=== PATIENT | female | born 1940 | race Caucasian/White ===

== ENCOUNTER 2022-10-01 12:25 | Inpatient (IN) ==
[2022-10-01] MEDS ORDERED: niCARdipine HCL INJ 2.5 MG/ML 10 ML AMP ONE (12:26)
[2022-10-01] MEDS ORDERED: HEPARIN (PORCINE) 1000 UNIT/ML 10 ML (CATH LAB USE ONLY) ONE (12:26)
[2022-10-01] MEDS ORDERED: fentaNYL citrate 100 MCG/2 ML VIAL ONE ×2 (12:26→14:09)
[2022-10-01] MEDS ORDERED: MIDAZOLAM HCL 1 MG/ML 2ML VIAL ONE (12:26)
[2022-10-01] MEDS ORDERED: NITROGLYCERIN SL 0.4 MG/TAB TAB ONE (12:32)
--- NOTE | 2022-10-01 12:35 | Emergency Department Note ---
Impression & Plan STEMI (ST elevation myocardial infarction), Chest pain ED Provider Note NAME: AI PERRY AGE: 82 SEX: F : 1940 ARRIVES VIA: Ambulance INFORMANT: Patient ED PROVIDER(S): Balaji Alaniz DO CHIEF COMPLAINT: chest pain HPI: Patient is an 82-year-old female who presents to the ER for midsternal chest pressure which started an hour prior to arrival. She received bad news a bout a family member being hospitalized and started having midsternal chest pressure going down both arms and up to the neck. She admits to shortness of breath with this. She has had 5 previous stents. Last catheterization was in 2014. Does have a history of hypertension and hyperlipidemia. She was brought in by EMS. She notes this does feel like her previous heart attacks with the exception on those she did not have any chest pressure but had the arm pain. She also had no jaw pain with those previous events. PAST MEDICAL HISTORY:See Below PAST SURGICAL HISTORY:See Below FAMILY HISTORY:See Below SOCIAL HISTORY:See Below HOME MEDICATIONS:See Below ALLERGIES:See Below VITALS:See Below PHYSICAL EXAMINATION: GENERAL: Sitting up in bed, alert, well appearing, well nourished, no distress, non-toxic EYE EXAM: normal conjunctiva. OROPHARYNX: mucous membranes are moist LUNGS: Clear to auscultation. Normal chest wall mechanics HEART: no murmurs, S1 normal and S2 normal ABDOMEN: abdomen soft, non-tender, normo-active bowel sounds, no masses, no rebound or guarding. UPPER EXTREMITIES: upper extremities are grossly normal. LOWER EXTREMITIES: No pitting edema. NEURO EXAM: Normal sensorium, cranial nerves II-XII grossly intact, normal speech, no gross weakness of arms, no gross weakness of legs. MEDICAL DECISION MAKING: Patient is an 82-year-old female who presents the ER for for her chest pressure midsternal going through to the back and bilateral arm and jaw pain. This felt similar to her previous CT with the exception she did not have chest pressure with those or neck pain B/L. I received medical command call in regards to this. She had progressive changes in her EKG concerning for STEMI prior to arrival. Heart alert was called 10-8 minutes prior to arrival. IVs were established blood work was obtained. Patient was given aspirin, nitro, and fentanyl prior to arrival. Here she was given nitro as Pt was . Cath team was present at bedside. Patient was taken to the [facility] prior to the result of blood work and obtaining chest x-ray as to not delay intervention. Labs show no significant leukocytosis or anemia. BMP with mild hypokalemia 3.2. LFTs bi lirubin was unremarkable. Troponin was only mildly elevated at 16. COVID was negative. Patient was taken emergently to the [facility] by Dr. Marcano. Triage Nursing notes reviewed. Limited review of prior medical records performed Vital Signs: reviewed and remarkable for no significant abnormalities Differential diagnosis: Cardiac ischemia, aortic dissection, pulmonary embolism, pneumothorax, pneumonia, pericarditis, myocarditis, esophageal rupture, GERD, cholecystitis, pancreatitis, musculoskeletal, as well as other pathologies. ER treatment provided: See below Diagnostics interpreted by me include EKG and cardiac monitoring as listed below: -Cardiac Monitoring: An order was placed for continuous cardiac monitoring. The monitor shows a rate of 83 with sinus rhythm. -ECG: Initial EKG by EMS showed A-fib without ST segment changes Repeat EKG A EMS at 1217 showed A-fib rate of 74 ST segment elevations in V2 and V3 PVC QTc 460 No old to compare to EKG #2 A-fib rate [address] segment elevations in V2 and V3 PVC QTc 457 -Laboratory studies:Interpreted by me as stated above in MDM and shown below. Imaging studies: Xrays: As interpreted by me:none CTs show: none Consultation(s): Dr. Marcano from interventional cardiology took the patient emergently to [facility] Discussed with Destini after patient taken to the [facility] to update them in regards to possible admission Procedures:none Critical Care: I have personally spent 31 minutes of critical care time in the direct management of this patient. This includes bedside care, interpretation of diagnostic studies, and testing, discussion with consultants, patient, and family members, and other required patient management activities. This 31 minutes is in excess of all separately billable procedures. Past Med/Surg History Medical History (Updated 10/01/22 @ 16:12 by Summer Archuleta MD) Atrial fibrillation CAD (coronary artery disease) HLD (hyperlipidemia) HTN (hypertension) Statin intolerance Surgical History (Updated 10/01/22 @ 15:46 by Allyson Saul PA-C) H/O tubal ligation Presence of Watchman left atrial appendage closure device 2014 at [facility] Stented coronary artery 2015 at [facility] Family History Other Heart disease Hypertension Social History Smoking Status: Never smoker Second Hand Exposure: No; Do You Dip or Chew Tobacco: No; Tobacco Cessation Education Requested by Patient: No Hx Alcohol Use: No Hx Substance Use: No Preferred Language: Occitan Communication Ability: Effective Machine Stone Polisher Required: No Beliefs That Will Affect Care: None Current Living Situation: Alone Other Information That Helps Us Care for You: No Feels Safe at Home: Yes Safety Concerns: Feels Safe At This Time Assistive Devices: None Allergies Allergies Allergy/AdvReac Type Severity Reaction Status Date / Time [id number] Reductase AdvReac Muscle Pain Verified 10/01/22 13:57 Inhibitor Home Meds Home Medications Medication Instructions Recorded Confirmed aspirin 81 mg capsule 81 mg PO DAILY 10/01/22 10/01/22 calcium carbonate 600 mg calcium 600 mg PO DAILY 10/01/22 10/01/22 (1,500 mg) tablet cholecalciferol (vitamin D3) 50 50 mcg PO DAILY 10/01/22 10/01/22 mcg (2,000 unit) capsule (Vitamin D3) diltiazem HCl 120 mg 120 mg PO DAILY 10/01/22 10/01/22 capsule,extended release 24 hr evolocumab 140 mg/mL subcutaneous 140 mg subcut Q14D 10/01/22 10/01/22 pen injector (Shena Alvarez) lisinopril 20 mg tablet 20 mg PO DAILY 10/01/22 10/01/22 magnesium oxide 400 mg PO DAILY 10/01/22 10/01/22 multivitamin 1 tab PO DAILY 10/01/22 10/01/22 pantoprazole 40 mg tablet,delayed 40 mg PO DAILY 10/01/22 10/01/22 release potassium chloride 20 mEq 20 meq PO DAILY 10/01/22 10/01/22 tablet,extended release(part/cryst) Results & Data (ED) Vital Signs Vital Signs - 24 hr 10/01/22 12:21 10/01/22 12:21 10/01/22 12:21 Temperature Temperature Source Pulse Rate 78 Pulse Rate [Apical] 78 Pulse Rhythm [Apical] Pulse Strength [Apical] Respiratory Rate 24 24 Respiratory Effort / Characteristics Non-Labored Spontaneous Non-Labored Respiratory Depth Respiratory Pattern Regular Blood Pressure 144/106 H Blood Pressure [Left Arm] 144/106 H Blood Pressure Mean 118 Blood Pressure Mean [Left Arm] 118 Blood Pressure Position [Left Arm] Pulse Oximetry 93 93 93 Oxygen Delivery Method Nasal Cannula Nasal Cannula Nasal Cannula Oxygen Flow Rate 2 2 Sepsis Recent Fever Within 48 Hours No Sepsis New/Unexplained Change in Mental Status N/A Sepsis Action Taken by Nursing No Action Required 10/01/22 12:21 10/01/22 12:45 10/01/22 13:35 Temperature 36.5 C Temperature Source Oral Pulse Rate 81 Pulse Rate [Apical] 76 Pulse Rhythm [Apical] Pulse Strength [Apical] Respiratory Rate 22 18 Respiratory Effort / Characteristics Non-Labored Respiratory Depth Normal Respiratory Pattern Blood Pressure 149/105 H Blood Pressure [Left Arm] 165/107 H Blood Pressure Mean Blood Pressure Mean [Left Arm] 126 Blood Pressure Position [Left Arm] Pulse Oximetry 93 94 94 Oxygen Delivery Method Nasal Cannula Nasal Cannula Room Air Oxygen Flow Rate 2 2 Sepsis Recent Fever Within 48 Hours Sepsis New/Unexplained Change in Mental Status Sepsis Action Taken by Nursing 10/01/22 13:45 10/01/22 14:00 10/01/22 14:15 Temperature Temperature Source Pulse Rate Pulse Rate [Apical] 84 86 91 H Pulse Rhythm [Apical] Pulse Strength [Apical] Respiratory Rate 18 18 18 Respiratory Effort / Characteristics Non-Labored Non-Labored Non-Labored Respiratory Depth Normal Normal Normal Respiratory Pattern Blood Pressure Blood Pressure [Left Arm] 161/118 H 165/119 H 144/115 H Blood Pressure Mean Blood Pressure Mean [Left Arm] 132 134 124 Blood Pressure Position [Left Arm] Pulse Oximetry 97 96 96 Oxygen Delivery Method Room Air Room Air Room Air Oxygen Flow Rate Sepsis Recent Fever Within 48 Hours Sepsis New/Unexplained Change in Mental Status Sepsis Action Taken by Nursing 10/01/22 14:20 10/01/22 14:20 10/01/22 14:50 Temperature 34.6 C L Temperature Source Oral Pulse Rate 84 Pulse Rate [Apical] 84 82 Pulse Rhythm [Apical] Regular Pulse Strength [Apical] Normal Respiratory Rate 18 18 Respiratory Effort / Characteristics Non-Labored Respiratory Depth Normal Normal Respiratory Pattern Blood Pressure Blood Pressure [Left Arm] 145/93 H 151/86 H Blood Pressure Mean Blood Pressure Mean [Left Arm] 110 107 Blood Pressure Position [Left Arm] Lying Pulse Oximetry 96 92 Oxygen Delivery Method Room Air Room Air Oxygen Flow Rate Sepsis Recent Fever Within 48 Hours Sepsis New/Unexplained Change in Mental Status Sepsis Action Taken by Nursing Laboratory Data 10/01/22 12:33 10/01/22 12:33 Lab Results 10/01/22 10/01/22 10/01/22 Range/Units 12:33 12:33 12:35 WBC 8.62 (4.8-10.8) K/ul RBC 3.93 L (4.20-5.40) M/uL Hgb 12.1 (12.0-16.0) g/dl POC Hgb (12.0-16.0) g/dl Hct 37.7 (37.0-47.0) % POC Hct (37-47) % MCV 95.9 (80.0-100.0) fL MCH 30.8 (25.0-34.0) pg MCHC 32.1 (32.0-36.0) g/dL RDW Std Deviation 56.0 H (36.4-46.3) fL RDW Coeff of Garcia 15.9 H (11.5-14.5) % Plt Count 232 (130-400) K/uL MPV 10.6 (9.4-12.4) fL Immature Gran % (Auto) 0.2 % Neut % (Auto) 64.2 % Lymph % (Auto) 23.9 % [place] % (Auto) 10.1 % Eos % (Auto) 1.3 % Baso % (Auto) 0.3 % Neut # (Auto) 5.53 (1.40-6.50) K/uL Lymph # (Auto) 2.06 (1.2-3.4) K/uL [place] # (Auto) 0.87 H (0.11-0.59) K/uL Eos # (Auto) 0.11 (0-0.50) K/uL Baso # (Auto) 0.03 (0-0.2) K/uL Immature Gran # (Auto) 0.02 (0.01-0.20) K/uL POC Sodium (135-144) mmol/L Sodium 143 (136-145) mmol/L POC Potassium (3.3-5.0) mmol/L Potassium 3.2 L (3.5-5.1) mmol/L POC Chloride (101-112) mmol/L Chloride 108 H (98-107) mmol/L Carbon Dioxide 27 (21-32) mmol/L POC Total CO2 (24-31) mmol/L Anion Gap 8 (3-11) POC Anion Gap (16-25) mmol/L POC BUN (7-18) mg/dl BUN 31 H (6-23) mg/dl Creatinine 1.20 (0.6-1.2) mg/dl POC Creatinine (0.6-1.3) mg/dl Est Cr Clr Drug Dosing 31.9 ml/min Est GFR ( Amer) 49.4 ml/min Est GFR (Non-Af Amer) 42.7 ml/min BUN/Creatinine Ratio 25.8 H (10-20) Glucose 108 H (70-99(Fasting)) mg/dl POC Glucose (other) (70-99) mg/dl Calcium 9.4 (8.5-10.1) mg/dl POC Ioniz Calcium Jasper (1.12-1.32) mmol/l Total Bilirubin 0.4 (0.2-1.0) mg/dl AST 17 (13-39) U/L ALT 10 (7-52) U/L Alkaline Phosphatase 59 (34-104) U/L Troponin I High Sens 16.3 H (0-14) pg/ml Total Protein 6.9 (6.0-8.3) gm/dl Albumin 4.1 (3.4-5.0) gm/dl Globulin 2.8 (2.5-4.0) gm/dl Albumin/Globulin Ratio 1.5 (0.9-2) Lipase 35 (11-82) U/L SARS-CoV-2, RNA, NAAT NEGATIVE (NEGATIVE) 10/01/22 Range/Units 12:43 WBC (4.8-10.8) K/ul RBC (4.20-5.40) M/uL Hgb (12.0-16.0) g/dl POC Hgb 12.9 (12.0-16.0) g/dl Hct (37.0-47.0) % POC Hct 38 (37-47) % MCV (80.0-100.0) fL MCH (25.0-34.0) pg MCHC (32.0-36.0) g/dL RDW Std Deviation (36.4-46.3) fL RDW Coeff of Garcia (11.5-14.5) % Plt Count (130-400) K/uL MPV (9.4-12.4) fL Immature Gran % (Auto) % Neut % (Auto) % Lymph % (Auto) % [place] % (Auto) % Eos % (Auto) % Baso % (Auto) % Neut # (Auto) (1.40-6.50) K/uL Lymph # (Auto) (1.2-3.4) K/uL [place] # (Auto) (0.11-0.59) K/uL Eos # (Auto) (0-0.50) K/uL Baso # (Auto) (0-0.2) K/uL Immature Gran # (Auto) (0.01-0.20) K/uL POC Sodium 143 (135-144) mmol/L Sodium (136-145) mmol/L POC Potassium 3.2 L (3.3-5.0) mmol/L Potassium (3.5-5.1) mmol/L POC Chloride 107 (101-112) mmol/L Chloride (98-107) mmol/L Carbon Dioxide (21-32) mmol/L POC Total CO2 25 (24-31) mmol/L Anion Gap (3-11) POC Anion Gap 16.0 (16-25) mmol/L POC BUN 28 H (7-18) mg/dl BUN (6-23) mg/dl Creatinine (0.6-1.2) mg/dl POC Creatinine 1.2 (0.6-1.3) mg/dl Est Cr Clr Drug Dosing ml/min Est GFR ( Amer) ml/min Est GFR (Non-Af Amer) ml/min BUN/Creatinine Ratio (10-20) Glucose (70-99(Fasting)) mg/dl POC Glucose (other) 107 H (70-99) mg/dl Calcium (8.5-10.1) mg/dl POC Ioniz Calcium Jasper 1.19 (1.12-1.32) mmol/l Total Bilirubin (0.2-1.0) mg/dl AST (13-39) U/L ALT (7-52) U/L Alkaline Phosphatase (34-104) U/L Troponin I High Sens (0-14) pg/ml Total Protein (6.0-8.3) gm/dl Albumin (3.4-5.0) gm/dl Globulin (2.5-4.0) gm/dl Albumin/Globulin Ratio (0.9-2) Lipase (11-82) U/L SARS-CoV-2, RNA, NAAT (NEGATIVE) Administered Medications Sodium Chloride (Nss 1000ml) 1,000 mls @ 100 mls/hr IV .Q10H [facility] Stop: 10/01/22 18:44 Last Admin: 10/01/22 15:31 Dose: 100 mls/hr Documented By: BASIM Esmolol HCl (Brevibloc) 2,500 mg in 250 mls @ 18.96 mls/hr IV .[id number] BARBARA; Protocol Stop: 10/31/22 15:44 Last Admin: 10/01/22 16:07 Dose: 50 mcg/kg/min, 19 mls/hr Documented By: HITESH Co-signed By: ANDRIA Ondansetron HCl (Ondansetron Inj 2 Mg/Ml 2 Ml Vial) 4 mg IV Q6H PRN PRN Reason: Nausea And Vomiting Stop: 10/31/22 13:34 Last Admin: 10/01/22 14:21 Dose: 4 mg Documented By: LINDA Discontinued Medications Fentanyl Citrate (Fentanyl Citrate 100 Mcg/2 Ml Vial) Confirm Administered Dose 100 mcg .ROUTE .STK-MED ONE Stop: 10/01/22 14:10 Last Increment: 10/01/22 14:20 Dose: 25 mcg Documented By: LINDA Hydralazine HCl (Hydralazine Hcl 20 Mg/Ml Vial) Confirm Administered Dose 20 mg .ROUTE .STK-MED ONE Stop: 10/01/22 13:52 Last Increment: 10/01/22 14:00 Dose: 10 mg Documented By: LINDA Ioversol (Optiray 320 500ml) 105 ml IV ONCE ONE Stop: 10/01/22 14:39 Last Admin: 10/01/22 14:38 Dose: 105 ml Documented By: LEXI Metoprolol Tartrate (Metoprolol Tartrate 1 Mg/Ml Vial) Confirm Administered Dose 5 mg IV .STK-MED ONE Stop: 10/01/22 14:19 Last Admin: 02/28/23 14:20 Dose: 5 mg Documented By: LINDA Nitroglycerin (Nitroglycerin Sl 0.4 Mg/Tab Tab) Confirm Administered Dose 0.4 mg .ROUTE .STK-MED ONE Stop: 10/01/22 12:33 Last Admin: 10/01/22 12:33 Dose: 0.4 mg Documented By: ALIDA Nitroglycerin (Nitroglycerin 2% Ointment 30gm Tube) Confirm Administered Dose 18 inch EXT .STK-MED ONE Stop: 10/01/22 13:53 Last Admin: 10/01/22 14:00 Dose: 1 inch Documented By: LINDA Imaging Data Radiologist's Impression: Chest CTA 10/01/22 14:18 CT ANGIOGRAPHY OF THE CHEST DISSECTION PROTOCOL CLINICAL HISTORY: chest pain, dilated aorta COMPARISON STUDY: No previous studies for comparison. TECHNIQUE: Before and following the IV administration of 105 mL of Optiray, helical axial images of the chest were obtained. Maximal intensity projections and sagittal and coronal reformats were viewed on an independent 3D workstation. IV contrast was administered without complication. Automated exposure control was utilized for the study. A dose lowering technique was utilized adhering to the principles of ALARA. CT DOSE: 613.59 mGy.cm FINDINGS: Note is made of an acute intramural hematoma of the thoracic aorta. This begins at the level of the aortic root and extends to the level of the mid descending thoracic aorta. No intimal flap is identified. The coronary arteries are suboptimally assessed on this non gated exam. There is associated dilatation of the ascending aorta which measures 5.5 x 5.4 cm at the level of the main pulmonary artery. Small hyperdense pericardial effusion represents small hemoperitoneum. Moderate cardiomegaly and coronary artery calcification is noted. There is a left atrial appendage device. No pulmonary emboli are identified. There is no pneumothorax or pleural effusion. A large hiatal hernia with partially intrathoracic stomach is present. There is no consolidation to suggest pneumonia. Linear and groundglass opacities within lungs favor atelectasis. Old T11 compression fracture is present. There is an old sternal fracture. Lesions within the visualized upper portions of the kidneys represent cysts. These measure up to 5.6 cm. IMPRESSION: 1. Acute type A intramural hematoma which extends from the aortic root to the mid descending thoracic aorta. Associated dilatation of the ascending aorta, measuring 5.5 x 5.4 cm and a small hemopericardium. No dissection flap. Urgent Cardiothoracic surgical consultation is recommended. Findings discussed with Dr. Marcano at time of dictation. 2. Moderate cardiomegaly and coronary calcification. 3. Large hiatal hernia. ACT 112: Negative or not required by law. Electronically signed by: Mat Yanez M.D. 10/01/2022 3:07 PM Discharge Plan Visit Data Chief Complaint: Heart Alert Stated Complaint: CHEST PAIN ED Provider: Balaji Alaniz Patient Disposition: Being Evaluated by Surgeon Discharge Instructions Interventions: ED Discharge Assessment Last Done: 10/01/22 12:45
[2022-10-01] MEDS ORDERED: TICAGRELOR 90 MG TAB ONE (12:45)
[2022-10-01] MEDS ORDERED: NITROGLYCERIN/D5W 100MCG/ML 20ML SYR ONE ×2 (12:45→12:52)
[2022-10-01 12:52] LABS: Basophils # (auto) 0.03 K/uL (0-0.2); Basophils % (auto) 0.3 %; Eosinophils # (auto) 0.11 K/uL (0-0.50); Eosinophils % (auto) 1.3 %; Hematocrit (blood only) 37.7 % (37.0-47.0); Hemoglobin 12.1 g/dl (12.0-16.0); Immature Granulocytes # (auto) 0.02 K/uL (0.01-0.20); Immature Granulocytes % (auto) 0.2 %; Lymphocytes # (auto) 2.06 K/uL (1.2-3.4); Lymphocytes % (auto) 23.9 %; Mean Corpuscular Hemoglobin 30.8 pg (25.0-34.0); Mean Corpuscular Hgb Conc 32.1 g/dL (32.0-36.0); Mean Corpuscular Volume 95.9 fL (80.0-100.0); Mean Platelet Volume 10.6 fL (9.4-12.4); Monocytes # (auto) 0.87 K/uL (0.11-0.59); Monocytes % (auto) 10.1 %; Neutrophils # (auto) 5.53 K/uL (1.40-6.50); Neutrophils % (auto) 64.2 %; Platelet Count 232 K/uL (130-400); RDW Coefficient of Variation 15.9 % (11.5-14.5); Red Blood Count 3.93 M/uL (4.20-5.40); White Blood Count 8.62 K/ul (4.8-10.8)
--- NOTE | 2022-10-01 12:52 | Cardiology Consultation ---
Date of Consultation October 01, 2022 Assessment & Plan (1) STEMI (ST elevation myocardial infarction): Presentation concerning for possible anterior STEMI and recommend proceeding with emergent cardiac catheterization and possible primary PCI. No apparent contraindications to procedure. Discussed risks, benefits, alternatives of procedure with patient and they are willing to proceed. Further recommendations pending findings of coronary angiography. History of Present Illness History of Present Illness 82-year-old woman here with acute chest pain and ECG concerning for acute AL. Patient seen emergently in the ED after heart alert activated en route. Past cardiac history remarkable for coronary artery disease with reported 5 stents previously placed at [facility], last per patient in 2014. Her head and neck surgeon is Dr. Rivas. Also with atrial fibrillation post Watchman. Also reports a history of a heart murmur. Chest pain began approximately 11 AM, approximately 80 minutes prior to arrival. Symptoms began while she was talking on the phone, stressful conversation regarding hospitalization of her older sister. Describes substernal pain with associated diaphoresis and numbness in her hands. Symptoms similar to what she had in the past with prior AL but more severe. En route initial ECG showed atrial fibrillation without dynamic ST changes. Subsequent ECG 6 min later with anterior ST elevations in V2-V3 and heart alert activated from field. Ongoing chest pain on arrival, EKG with borderline ST elevations in V2-V3. Given nitroglycerin, aspirin fentanyl in ED. Patient History Social History Smoking Status: Never smoker Preferred Language: Georgian Feels Safe at Home: Yes Review of Systems Review of Systems: All systems reviewed & are unremarkable except as noted in HPI & below Physical Exam Physical Exam: General: Uncomfortable, diaphoretic HEENT: Sclerae anicteric Lungs: Clear to auscultation anteriorly Cardiac: Irregular irregular, 3-6 systolic ejection murmur heard best at left upper sternal border Vascular: Diminished right radial pulse. 2+ left radial pulse Abdomen: Soft, nontender Extremities: Well perfused, no peripheral edema Neuro: Nonfocal Psych: Alert orient x3, normal affect and mood Results & Data ([facility]) Vital Signs (Past 12 Hours) Vital Signs Pulse Pulse Resp BP BP Pulse Ox O2 Del Method 10/01/22 12:21 93 Nasal Cannula 10/01/22 12:21 78 24 144/106 H 93 Nasal Cannula 10/01/22 12:21 93 Nasal Cannula 10/01/22 12:21 78 24 144/106 H 93 Nasal Cannula O2 Flow Rate 10/01/22 12:21 2 10/01/22 12:21 2 10/01/22 12:21 2 10/01/22 12:21 PG Care Time/CCT Total # of Minutes Spent Total Time Spent with Patient: Total time spent is greater than 50% in coordination of care (as documented) at patient's floor/unit and/or counseling patient: Coding Level of Care Code 10665 INT INP/OBS CARE 3/75MIN Diagnoses STEMI (ST elevation myocardial infarction) I21.3
[2022-10-01 12:57] LABS: iSTAT Creatinine 1.2 mg/dl (0.6-1.3); iSTAT Hemoglobin 12.9 g/dl (12.0-16.0); iSTAT Ionized Calcium 1.19 mmol/l (1.12-1.32); iSTAT Potassium 3.2 mmol/L (3.3-5.0)
[2022-10-01 13:11] LABS: Albumin Globulin Ratio 1.5 (0.9-2); Albumin Level 4.1 gm/dl (3.4-5.0); BUN Creatinine Ratio 25.8 (10-20); Bilirubin,Total 0.4 mg/dl (0.2-1.0); Calcium 9.4 mg/dl (8.5-10.1); Creatinine Clr Calc Pharmacy 31.9 ml/min; Est GFR (African American) 49.4 ml/min; Est GFR (Non-African American) 42.7 ml/min; Globulin 2.8 gm/dl (2.5-4.0); Potassium 3.2 mmol/L (3.5-5.1); Total Protein 6.9 gm/dl (6.0-8.3)
[2022-10-01 13:13] LABS: Troponin I High Sensitivity 16.3 pg/ml (0-14)
[2022-10-01] MEDS ORDERED: ACETAMINOPHEN 325 MG TAB PO PRN (13:35)
[2022-10-01] MEDS ORDERED: ONDANSETRON INJ 2 MG/ML 2 ML VIAL IV PRN (13:35)
[2022-10-01] MEDS ORDERED: SODIUM CHLORIDE 0.9% 1000ML 1,000 ML IV SCH (13:45)
--- NOTE | 2022-10-01 13:50 | Cardiac Catheterization ---
[facility] Data: [facility] Cardiac Status Clinical evaluation leading to the procedure CAD Presenation: STEMI Anginal Classification: CCS IV Diagnostic Physicians Name: Cisco Marcano MD Closure Device Recommendations: Medical Therapy and/or Counseling Cardiac Cath Procedure Full Procedure Date October 01, 2022 Pre-Procedure Diagnosis Pre-Procedure Diagnosis: STEMI AUC Score AUC Score: 9 Post-Procedure Diagnosis Post-Procedure Diagnosis: Moderate CAD, Normal LV Systolic Function and Normal Intracardiac Pressures Procedure(s) Performed Procedure(s) Performed: Coronary Angiography, Left Heart Cath, LV Angiography and Ultrasound Guided Vascular Access Plug Paster Cisco Marcano MD Gearcase Assembler(s) Bret Estimated Blood Loss Estimated Blood Loss: 10 Medication(s) Medication(s): Fentanyl, Heparin, Lidocaine 1%, Nicardipine, Nitroglycerin and Versed Medication(s): Ticagrelor Summary of Findings Indication: Suspected ACS. Acute chest pain with transient anterior ST elevations on ECG. Access: 6 Fr left radial artery under ultrasound guidance Catheters: EBU 3.5 guide, diagnostic JR4, pigtail catheter Findings: LM -medium caliber, long vessel with luminal regularities LAD -medium caliber, 30% ostial stenosis, proximal luminal irregularities, 50% mid segment stenosis after takeoff of large D1. Remainder of LAD without significant disease and extends to apex. Large D1 with widely patent proximal stent, at least 2 stents in the midsegment without significant restenosis and 20 to 30% stenosis just distal to the stents. NGUYEN-3 flow in distal diagonal Circumflex -medium caliber vessel, no significant disease Ramussmall vessel, 60% ostial stenosis, NGUYEN-3 flow RCA -dominant, anterior takeoff, large caliber, 20 to 30% mid segment disease. RPDA, posterior AV branch without significant disease. Small conus branch appears subtotally occluded. LVEDP -7 LV [id number]%, no apparent regional wall motion abnormalities, no significant AI Arterial Closure: TR band Summary: 1. Moderate nonobstructive coronary artery disease -30% ostial LAD, 50% mid LAD. Large D1 with widely patent proximal, mid stents. Hazy 30% stenosis just after prior stents. Small ramus 60% ostial Very small conus branch subtotally occluded, potentially acute 2. Normal intracardiac filling pressure 3. LVEF 60 to 65% without regional wall motion abnormalities Recommendations: Unclear initial etiology of patient's presenting chest pain. No high risk obstructive disease seen on coronary angiography. LV gram does not suggest Takotsubo's. Possible vasospasm, transient small vessel occlusion. We will admit to telemetry for further observation and evaluation of non-cardiac causes of pain. Trend troponin until peak, check echocardiogram Resume heparin infusion when TR band removed. Continued ASCVD risk factor modification Hemodynamics Rest Ao:: 162/112/135 Final Ao: 163/94/114 LV: 161/7 Recommendations Recommendations: Medical Therapy and/or Counseling Specimens Specimens: None Radiation Exposure (mGy) 599 Contrast (mls) 80 Anesthesia Moderate [id number] Procedural Complication(s) None Disposition PCU I attest to the content of the Intraoperative Record and any orders documented therein. Any exceptions are noted below. [facility] Card Cath Procedure Codes Cardiac Catheterization Procedure 1: Cardiovascular Cath Procedures: 22333 Coronaries and LHC (+/-LV) Therapeutic Services & Ancillary Procedure 1: Cardiovascular Tx and Anc Procedures: 65002 Ultrasonic Guidance Vascular Access Moderate Sedation Procedure 1: Sedation/Anesthesia: 90293 Mod Sedation by the same physician;Init15 Min Child Age 5 & Up PG Care Time/CCT Total # of Minutes Spent Total Time Spent with Patient: Total time spent is greater than 50% in coordination of care (as documented) at patient's floor/unit and/or counseling patient:
[2022-10-01] MEDS ORDERED: hydrALAZINE HCL 20 MG/ML VIAL ONE (13:51)
[2022-10-01] MEDS ORDERED: NITROGLYCERIN 2% OINTMENT 30GM TUBE EXT ONE (13:52)
[2022-10-01] MEDS ORDERED: Patient's ALLERGY Info needs ENTERED SCH (14:00)
--- NOTE | 2022-10-01 14:07 | History & Physical Report ---
Date of Service October 01, 2022 Assessment & Plan (1) Intramural aortic hematoma: (2) STEMI (ST elevation myocardial infarction): Plan: This is an 82yo F with a PMH of CAD with 5 stents placed at [facility], atrial fibrillation status post Watchman device and other medical problems listed below who presents with acute chest pain with abnormal EKG changes and heart alert was called prior to arrival. Symptoms began this morning around 11 AM and was brought to ED by EMS as a heart alert Initial ECG by EMS in route demonstrated atrial fibrillation and subsequent ECG showed subtle ST elevation V2-V3 Given nitro, aspirin and fentanyl in ED Cardiac cath revealed moderate nonobstructive coronary artery disease and preserved LVEF 60 to 65% without regional wall motion abnormalities Initial etiology of chest pain unclear but echocardiogram revealed enlarged aorta so CTA chest obtained to rule out dissection CTA chest shows acute type A intramural hematoma which extends from the aortic root to the mid descending thoracic aorta. Associated dilatation of the ascending aorta, measuring 5.5 x 5.4 cm and a small hemopericardium. No dissection flap. Urgent Cardiothoracic surgical consultation is recommended Dr. Marcano discussed with [facility] cardiothoracic surgery and Dr. Pisano accepting Arranging for transfer to ICU, to be flown Patient to ICU on Esmolol drip. Discussed with Dr. Villanueva (3) Atrial fibrillation: Plan: S/p Watchman closure in 2014 at [facility]. Continue diltiazem (4) HTN (hypertension): Plan: Holding lisinopril for now, Cr 1.2 and received IV contrast. Repeat BMP tomorrow. On Esmolol drip (5) HLD (hyperlipidemia): (6) Statin intolerance: Plan: Repatha SQ Q2 weeks, due today Code status: FULL PCP: Xavi Morris) Dispo: Transferring to [facility], ICU until then Patient seen in collaboration with Dr. Archuleta. Please see addendum. A total of 80 minutes critical care time was spent with greater than 50% of that time face to face with the patient, personally reviewing all current laboratories, imaging studies, past medication reconciliation, outpatient chart review, and discussion with specialists to collaborate care for the patient with attending and utilization of translation services. Please see attending documentation for corrections and/or additions. (7) Ascending aortic dissection: (8) Pericardial effusion: History of Present Illness Chief Complaint: chest pain Primary Care Provider: NO PCP This is an 82yo F with a PMH of CAD with 5 stents placed at [facility], atrial fibrillation status post Watchman device and other medical problems listed below who presents with acute chest pain with abnormal EKG changes and heart alert was called prior to arrival. Symptoms began this morning around 11 AM following stressful conversation about hospitalization of older sister. Described central substernal chest pain with radiation to neck as well as associated diaphoresis similar to what she had with previous [place]. Initial ECG by EMS in route demonstrated atrial fibrillation and subsequent ECG showed subtle ST elevation V2-V3. Patient seen emergently in ED as a heart alert and was given nitro, aspirin and fentanyl in ED. Cardiac cath revealed moderate nonobstructive coronary artery disease and preserved LVEF 60 to 65% without regional wall motion abnormalities. Per Dr. Marcano, unclear etiology of patient's presenting chest pain. Consideration for coronary spasm. LV gram does not suggest Takotsubo's. Echocardiogram revealed enlarged aorta so CTA chest obtained to rule out dissection. CTA chest shows acute type A intramural hematoma which extends from the aortic root to the mid descending thoracic aorta. Associated dilatation of the ascending aorta, measuring 5.5 x 5.4 cm and a small hemopericardium. No dissection flap. Urgent Cardiothoracic surgical consultation is recommended. U pdated by Dr. Marcano, who is arranging for transfer to tertiary care facility and patient accepted by Dr. Pisano at [facility]. Patient will be transferred to ICU for management until then. Discussed with Dr. Villanueva. In ICU, patient still with 2/10 substernal discomfort with associated nausea and fatigue but no vomiting. Denies fever, chills, lightheadedness, SOB, abdominal pain, dysuria, diarrhea or constipation. Daughter, RN, at bedside. 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 Allergies Allergy/AdvReac Type Severity Reaction Status Date / Time [id number] Reductase AdvReac Muscle Pain Verified 10/01/22 13:57 Inhibitor Home Medications Medication Instructions Recorded Confirmed Type aspirin 81 mg capsule 81 mg PO DAILY 10/01/22 10/01/22 History calcium carbonate 600 mg calcium 600 mg PO DAILY 10/01/22 10/01/22 History (1,500 mg) tablet cholecalciferol (vitamin D3) 50 50 mcg PO DAILY 10/01/22 10/01/22 History mcg (2,000 unit) capsule (Vitamin D3) diltiazem HCl 120 mg 120 mg PO DAILY 10/01/22 10/01/22 History capsule,extended release 24 hr evolocumab 140 mg/mL subcutaneous 140 mg subcut Q14D 10/01/22 10/01/22 History pen injector (blaisegilles LynnJamisonliang) lisinopril 20 mg tablet 20 mg PO DAILY 10/01/22 10/01/22 History magnesium oxide 400 mg PO DAILY 10/01/22 10/01/22 History multivitamin 1 tab PO DAILY 10/01/22 10/01/22 History pantoprazole 40 mg tablet,delayed 40 mg PO DAILY 10/01/22 10/01/22 History release potassium chloride 20 mEq 20 meq PO DAILY 10/01/22 10/01/22 History tablet,extended release(part/cryst) Past Med/Surg History Medical History (Updated 10/01/22 @ 16:12 by Summer Archuleta MD) Atrial fibrillation CAD (coronary artery disease) HLD (hyperlipidemia) HTN (hypertension) Statin intolerance Surgical History (Updated 10/01/22 @ 15:46 by Allyson Saul PA-C) H/O tubal ligation Presence of Watchman left atrial appendage closure device 2015 at [facility] Stented coronary artery 2015 at [facility] Family History Other Heart disease Hypertension Social History Smoking Status: Never smoker Second Hand Exposure: No; Do You Dip or Chew Tobacco: No; Tobacco Cessation Education Requested by Patient: No Hx Alcohol Use: No Hx Substance Use: No Preferred Language: French Communication Ability: Effective Barrel Finisher Required: No Beliefs That Will Affect Care: None Current Living Situation: Alone Other Information That Helps Us Care for You: No Feels Safe at Home: Yes Safety Concerns: Feels Safe At This Time Assistive Devices: None Review of Systems Review of Systems: At least ten systems reviewed and negative except as noted in the HPI. Physical Exam Physical Exam: Please see Dr. Archuleta's addendum for physical exam. Results & Data Results & Data ([facility]) Vital Signs (Past 12 Hours) Vital Signs Temp Pulse Pulse Resp BP BP Pulse Ox 10/01/22 13:35 76 18 165/107 H 94 10/01/22 12:45 36.5 C 81 22 149/105 H 94 10/01/22 12:21 93 10/01/22 12:21 78 24 144/106 H 93 10/01/22 12:21 93 10/01/22 12:21 78 24 144/106 H 93 O2 Del Method O2 Flow Rate 10/01/22 13:35 Room Air 10/01/22 12:45 Nasal Cannula 2 10/01/22 12:21 Nasal Cannula 2 10/01/22 12:21 Nasal Cannula 2 10/01/22 12:21 Nasal Cannula 2 10/01/22 12:21 Nasal Cannula Laboratory Results Short CBC 10/01/22 Range/Units 12:33 WBC 8.62 (4.8-10.8) K/ul Hgb 12.1 (12.0-16.0) g/dl Hct 37.7 (37.0-47.0) % Plt Count 232 (130-400) K/uL BMP 10/01/22 12:33 Sodium 143 Potassium 3.2 L Chloride 108 H Carbon Dioxide 27 BUN 31 H Creatinine 1.20 Glucose 108 H Calcium 9.4 Liver Function 10/01/22 Range/Units 12:33 Total Bilirubin 0.4 (0.2-1.0) mg/dl AST 17 (13-39) U/L ALT 10 (7-52) U/L Alkaline Phosphatase 59 (34-104) U/L Albumin 4.1 (3.4-5.0) gm/dl Diagnostic Findings Chest CTA 10/01/22 14:18 CT ANGIOGRAPHY OF THE CHEST DISSECTION PROTOCOL CLINICAL HISTORY: chest pain, dilated aorta COMPARISON STUDY: No previous studies for comparison. TECHNIQUE: Before and following the IV administration of 105 mL of Optiray, helical axial images of the chest were obtained. Maximal intensity projections and sagittal and coronal reformats were viewed on an independent 3D workstation. IV contrast was administered without complication. Automated exposure control was utilized for the study. A dose lowering technique was utilized adhering to the principles of ALARA. CT DOSE: 613.59 mGy.cm FINDINGS: Note is made of an acute intramural hematoma of the thoracic aorta. This begins at the level of the aortic root and extends to the level of the mid descending thoracic aorta. No intimal flap is identified. The coronary arteries are suboptimally assessed on this non gated exam. There is associated dilatation of the ascending aorta which measures 5.5 x 5.4 cm at the level of the main pulmonary artery. Small hyperdense pericardial effusion represents small hemoperitoneum. Moderate cardiomegaly and coronary artery calcification is noted. There is a left atrial appendage device. No pulmonary emboli are identified. There is no pneumothorax or pleural effusion. A large hiatal hernia with partially intrathoracic stomach is present. There is no consolidation to suggest pneumonia. Linear and groundglass opacities within lungs favor atelectasis. Old T11 compression fracture is present. There is an old sternal fracture. Lesions within the visualized upper portions of the kidneys represent cysts. These measure up to 5.6 cm. IMPRESSION: 1. Acute type A intramural hematoma which extends from the aortic root to the mid descending thoracic aorta. Associated dilatation of the ascending aorta, measuring 5.5 x 5.4 cm and a small hemopericardium. No dissection flap. Urgent Cardiothoracic surgical consultation is recommended. Findings discussed with Dr. Marcano at time of dictation. 2. Moderate cardiomegaly and coronary calcification. 3. Large hiatal hernia. ACT 112: Negative or not required by law. Electronically signed by: Mat Yanez M.D. 10/01/2022 3:07 PM ECG Additional Comments: EKG independently reviewed-Atrial fibrillation, ST elevation in V2-V3, T wave abnormality Code Status & VTE Plan VTE Prophylaxis Plan VTE Prophylaxis will be ordered: Yes Supervising Physician Co-Signing Physician Notes Patient was seen and examined with CALVIN. I was directly involved in patient care and CALVIN supervision. Start esmolol drip. Goal HR 50-60, SBP 100-120. Will hold lisinopril with her Cr of 1.2 (unk baseline) and contrast exposure today. Physical Exam: Gen- non toxic, no acute distress, pleasant and comfortable HEENT- mucous membrane moist, normocephalic, atraumatic CV- regular rate and rhythm, no murmurs/rubs/gallops Pulm- breathing comfortably on room air, no wheezing/rhonchi/rales Abd- soft, non tender, non distended Extr- no edema, no cyanosis or clubbing Skin- no rash, no redness, no ulcer noted on exposed skin Neuro- awake, alert, spontaneously moving extremities
[2022-10-01] MEDS ORDERED: METOPROLOL TARTRATE 1 MG/ML VIAL IV ONE (14:18)
[2022-10-01] MEDS ORDERED: OPTIRAY 320 500ml IV ONE (14:38)
--- NOTE | 2022-10-01 14:43 | Electrocardiogram Report ---
Test Reason : Blood Pressure : / mmHG Vent. Rate : 081 BPM Atrial Rate : 312 BPM P-R Int : 000 ms QRS Dur : 092 ms QT Int : 394 ms P-R-T Axes : 000 -07 111 degrees QTc Int : 457 ms Atrial fibrillation with premature ventricular or aberrantly conducted complexes Cannot rule out Inferior infarct , age undetermined Anteroseptal infarct , age undetermined Anterior injury pattern T wave abnormality, consider lateral ischemia Abnormal ECG No previous ECGs available Confirmed by Devante Goel ([id number]) on 10/01/2022 2:43:19 PM Referred By: Confirmed By:Devante Goel
--- NOTE | 2022-10-01 15:01 | XCELERA ---
[id number]
--- NOTE | 2022-10-01 15:09 | CT Scan Report ---
CT ANGIOGRAPHY OF THE CHEST DISSECTION PROTOCOL CLINICAL HISTORY: chest pain, dilated aorta COMPARISON STUDY: No previous studies for comparison. TECHNIQUE: Before and following the IV administration of 105 mL of Optiray, helical axial images of t he chest were obtained. Maximal intensity projections and sagittal and coronal reformats were viewed on an independent 3D workstation. IV contrast was administered without complication. Automated exp osure control was utilized for the study. A dose lowering technique was utilized adhering to the ab Shin. CT DOSE: 613.59 mGy.cm FINDINGS: Note is made of an acute intramural hematoma of the thoracic aorta. This begins at the lev el of the aortic root and extends to the level of the mid descending thoracic aorta. No intimal flap is identified. The coronary arteries are suboptimally assessed on this non gated exam. There is assoc iated dilatation of the ascending aorta which measures 5.5 x 5.4 cm at the level of the main pulmonar y artery. Small hyperdense pericardial effusion represents small hemoperitoneum. Moderate cardiomegal y and coronary artery calcification is noted. There is a left atrial appendage device. No pulmonary e mboli are identified. There is no pneumothorax or pleural effusion. A large hiatal hernia with partia lly intrathoracic stomach is present. There is no consolidation to suggest pneumonia. Linear and grou ndglass opacities within lungs favor atelectasis. Old T11 compression fracture is present. There is a n old sternal fracture. Lesions within the visualized upper portions of the kidneys represent cysts. These measure up to 5.6 cm. IMPRESSION: 1. Acute type A intramural hematoma which extends from the aortic root to the mid descending thoracic aorta. Associated dilatation of the ascending aorta, measuring 5.5 x 5.4 cm and a small hemopericard ium. No dissection flap. Urgent Cardiothoracic surgical consultation is recommended. Findings discuss ed with Dr. Marcano at time of dictation. 2. Moderate cardiomegaly and coronary calcification. 3. Large hiatal hernia. ACT 112: Negative or not required by law. Electronically signed by: Mat Yanez M.D. 10/01/2022 3:07 PM
[2022-10-01] MEDS ORDERED: STAT IV Infusion **Titration per Protocol STA (15:35)
[2022-10-01] MEDS ORDERED: ESMOLOL / NSS 2,500 MG/250 ML BAG IV SCH (15:45)
[2022-10-01] MEDS ORDERED: MoRPHine SULFATE 2 MG/ML CARP IV PRN (16:17)
[2022-10-01] MEDS ORDERED: ICU Protocol for HYPERglycemia SCH (16:30)
--- NOTE | 2022-10-01 16:32 | Discharge Summary ---
Discharge Summary Date of Service October 01, 2022 Notes For Next Care Provider Flight transfer to [facility] for cardiothoracic surgery given chest pain and findings consistent with intramural aortic hematoma/ascending aortic dissection. Medication Changes From Visit N/A Admission HPI Per Admitting Provider This is an 82yo F with a PMH of CAD with 5 stents placed at [facility], atrial fibrillation status post Watchman device and other medical problems listed below who presents with acute chest pain with abnormal EKG changes and heart alert was called prior to arrival. Symptoms began this morning around 11 AM following stressful conversation about hospitalization of older sister. Described central substernal chest pain with radiation to neck as well as associated diaphoresis similar to what she had with previous [place]. Initial ECG by EMS in route demonstrated atrial fibrillation and subsequent ECG showed subtle ST elevation V2-V3. Patient seen emergently in ED as a heart alert and was given nitro, aspirin and fentanyl in ED. Cardiac cath revealed moderate nonobstructive coronary artery disease and preserved LVEF 60 to 65% without regional wall motion abnormalities. Per Dr. Marcano, unclear etiology of patient's presenting chest pain. Consideration for coronary spasm. LV gram does not suggest Takotsubo's. Echocardiogram revealed enlarged aorta so CTA chest obtained to rule out dissection. CTA chest shows acute type A intramural hematoma which extends from the aortic root to the mid descending thoracic aorta. Associated dilatation of the ascending aorta, measuring 5.5 x 5.4 cm and a small hemopericardium. No dissection flap. Urgent Cardiothoracic surgical consultation is recommended. Updated by Dr. Marcano, who is arranging for transfer to tertiary care facility and patient accepted by Dr. Pisano at [facility]. Patient will be transferred to ICU for management until then. Discussed with Dr. Villanueva. In ICU, patient still with 2/10 substernal discomfort with associated nausea and fatigue but no vomiting. Denies fever, chills, lightheadedness, SOB, abdominal pain, dysuria, diarrhea or constipation. Daughter, RN, at bedside. 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 Admission Exam Per Admitting Provider Gen- non toxic, no acute distress, pleasant and comfortable HEENT- mucous membrane moist, normocephalic, atraumatic CV- regular rate and rhythm, no murmurs/rubs/gallops Pulm- breathing comfortably on room air, no wheezing/rhonchi/rales Abd- soft, non tender, non distended Extr- no edema, no cyanosis or clubbing Skin- no rash, no redness, no ulcer noted on exposed skin Neuro- awake, alert, spontaneously moving extremities Principal Dx & Hospital Course #1 = Principal Diagnosis (1) Ascending aortic dissection: (2) Intramural aortic hematoma: (3) STEMI (ST elevation myocardial infarction): (4) Atrial fibrillation: (5) HTN (hypertension): (6) HLD (hyperlipidemia): (7) Statin intolerance: (8) Pericardial effusion: Plan This is an 82yo F with a PMH of CAD with 5 stents placed at [facility] in 2014, atrial fibrillation status post Watchman device in 2015, HTN, HLD intolerant to statin and other medical problems listed below who presents with acute chest pain with abnormal EKG changes and heart alert was called prior to arrival. Symptoms began this morning around 11 AM and was brought to ED by EMS as a heart alert. Initial ECG by EMS in route demonstrated atrial fibrillation and subsequent ECG showed subtle ST elevation V2-V3. Given nitro, aspirin and fentanyl in ED and then taken for cardiac catheterization. Cardiac cath revealed moderate nonobstructive coronary artery disease and preserved LVEF 60 to 65% without regional wall motion abnormalities. Initial etiology of chest pain unclear but echocardiogram revealed enlarged aorta so CTA chest obtained to rule out dissection. CTA chest shows acute type Aintramural hematoma which extends from the aortic root to the mid descending thoracic aorta. Associated dilatation of the ascending aorta, measuring 5.5 x 5.4 cm and a small hemopericardium. No dissection flap. Urgent Cardiothoracic surgical consultation is recommended. Dr. Marcano discussed with [facility] cardiothoracic surgery and Dr. Pisano accepting. Patient in ICU awaiting flight transfer to [place]. Started on Esmolol drip with goal SBP 100-120 and HR 50-60. Will hold lisinopril with her Cr of 1.2 (unk baseline) and contrast exposure today. Discussed plan for transfer with patient and daughter ROSALIE Bacon at bedside. Discharge Exam Gen- non toxic, no acute distress, pleasant and comfortable HEENT- mucous membrane moist, normocephalic, atraumatic CV- regular rate and rhythm, no murmurs/rubs/gallops Pulm- breathing comfortably on room air, no wheezing/rhonchi/rales Abd- soft, non tender, non distended Extr- no edema, no cyanosis or clubbing Skin- no rash, no redness, no ulcer noted on exposed skin Neuro- awake, alert, spontaneously moving extremities Updated Medication List Medication Instructions Recorded Confirmed Type aspirin 81 mg capsule 81 mg PO DAILY 10/01/22 10/01/22 History calcium carbonate 600 mg calcium 600 mg PO DAILY 10/01/22 10/01/22 History (1,500 mg) tablet cholecalciferol (vitamin D3) 50 50 mcg PO DAILY 10/01/22 10/01/22 History mcg (2,000 unit) capsule (Vitamin D3) diltiazem HCl 120 mg 120 mg PO DAILY 10/01/22 10/01/22 History capsule,extended release 24 hr evolocumab 140 mg/mL subcutaneous 140 mg subcut Q14D 10/01/22 10/01/22 History pen injector (Shena Douglasick) lisinopril 20 mg tablet 20 mg PO DAILY 10/01/22 10/01/22 History magnesium oxide 400 mg PO DAILY 10/01/22 10/01/22 History multivitamin 1 tab PO DAILY 10/01/22 10/01/22 History pantoprazole 40 mg tablet,delayed 40 mg PO DAILY 10/01/22 10/01/22 History release potassium chloride 20 mEq 20 meq PO DAILY 10/01/22 10/01/22 History tablet,extended release(part/cryst) Hospital Stay Data Consultations 10/01/22 12:45 ED Decision to Admit Stat 10/01/22 13:48 Consult Cardiology Routine 10/01/22 15:49 Burn CD for patient Stat Procedures Performed Operation Date: 10/01/22 12:30 Actual Procedures p Cath, Left with Cors and Vent - Cody Marcano MD s Ultrasound Vascular Access - Cody Marcano MD Diagnostic Imagining Performed 10/01/22 12:30 CL Cath Imgs for PACS use only Stat 10/01/22 14:18 CTA chest dissec wo/w con [CT angio chest dissec wo/w con] Stat Pending Results Patient Have Any Pending Studies at Discharge: No Discharge Instructions Given to Patient (Per Discharging Provider) Flight transfer to [facility] for cardiothoracic surgery given chest pain and findings consistent with intramural aortic hematoma/ascending aortic dissection. Continue inpatient medications as below: Current Inpatient Medications Acetaminophen (Acetaminophen 325 Mg Tab) 650 mg PO Q4H PRN PRN Reason: MILD Pain (Scale 1,2,3) Stop: 10/31/22 13:34 Aspirin (Aspirin 81 Mg Ectab) 81 mg PO QAM [facility] Stop: 11/01/22 08:59 Calcium/Vitamin D (Calcium 600mg + Vit D 400 Iu Tab) 1 tab PO DAILY [facility] Stop: 11/01/22 08:59 Diltiazem HCl (Diltiazem Hcl 120 Mg Capcr) 120 mg PO DAILY [facility] Stop: 11/01/22 08:59 Sodium Chloride (Nss 1000ml) 1,000 mls @ 100 mls/hr IV .Q10H [facility] Stop: 10/01/22 18:44 Last Admin: 10/01/22 15:31 Dose: 100 mls/hr Esmolol HCl (Brevibloc) 2,500 mg in 250 mls @ 18.96 mls/hr IV .[id number] [facility]; Protocol Stop: 10/31/22 15:44 Last Admin: 10/01/22 16:07 Dose: 50 mcg/kg/min, 19 mls/hr Miscellaneous (Icu Protocol For Hyperglycemia) 1 each N/A ACHS [facility] Stop: 10/03/22 16:29 Morphine Sulfate (Morphine Sulfate 2 Mg/Ml Carp) 1 mg IV Q2HWA PRN PRN Reason: Pain Stop: 10/15/22 16:16 Ondansetron HCl (Ondansetron Inj 2 Mg/Ml 2 Ml Vial) 4 mg IV Q6H PRN PRN Reason: Nausea And Vomiting Stop: 10/31/22 13:34 Last Admin: 10/01/22 14:21 Dose: 4 mg Pantoprazole Sodium (Pantoprazole 40 Mg Tab) 40 mg PO DAILY [facility] Stop: 11/01/22 08:59 Vitamin D (Cholecalciferol 1,000 Units 25 Mcg Tab) 2,000 units PO DAILY [facility] Stop: 11/01/22 08:59 Total Time Total Time Spent Total Time Spent (In Minutes): 35
[2022-10-01 16:59] LABS: Estimated Average Glucose 97 mg/dl
[2022-10-02] MEDS ORDERED: dilTIAZem HCL 120 MG CAPCR PO SCH (09:00)
[2022-10-02] MEDS ORDERED: NON-FORMULARY MEDICATION (Aspirin 81 mg Capsule) PO SCH (09:00)
[2022-10-02] MEDS ORDERED: ASPIRIN 81 MG ECTAB PO SCH (09:00)
[2022-10-02] MEDS ORDERED: PANTOprazole 40 MG TAB PO SCH (09:00)
[2022-10-02] MEDS ORDERED: CHOLECALCIFEROL 1,000 UNITS 25 MCG TAB PO SCH (09:00)
[2022-10-02] MEDS ORDERED: CALCIUM 600MG + VIT D 400 IU TAB PO SCH (09:00)
== END 2022-10-01 17:10 | disposition short-term general hospital (02) | DRG 281 ==
LOC: ED 12:25 → CC 12:49 → 1E 12:49 → 4W 12:49 → 1E 15:31